=== PATIENT | female | born 1990 | race Caucasian/White ===

== ENCOUNTER 2017-08-24 18:23 | Inpatient (IN) | payer SELFPAY ==
--- NOTE | 2017-08-24 18:35 | EDPHY ---
H & P Source: Patient Exam Limitations: Clinical condition Time Seen by Provider: 08/24/17 18:34 HPI/ROS: HPI: This is a 26-year-old female who presents with Chief Complaint: M1, Panic Attack, Non-communicative, Hx Schizoaffective Location:psych Quality: Hearing voices Duration: unknown Signs and Symptoms:+ hearing voices Timing:acute on chronic Severity: Severe Context: Patient presents with police on M1 hold as she is hearing voices telling her to kill herself. She is described as disoriented and having difficulty responding to questions due to the intensity of the voices. Patient has a history of schizophrenia and is not being compliant with her medication. Upon arrival patient standing in the room staring for eyes fixed and wrist using to answer questions or look at. Police were notified by [facility] due to her noncompliance. Modifying Factors: Comment: ROS: Unable to obtain due to clinical condition MEDICAL/SURGICAL/SOCIAL HISTORY: Medical history: Schizoaffective disorder on Risperdal Surgical history: Denies Social history: Unemployed. CONSTITUTIONAL: Untidy, uncooperative, adult white female, awake and alert, no obvious distress HEENT: Atraumatic and normocephalic, PERRL, EOMI. Tympanic membranes clear. Oropharynx clear, no exudate and moist pink mucosa. Airway patent. No lymphadenopathy. No meningismus. Cardiovascular: Normal S1/S2, tachycardia, regular rhythm, without murmur rub or gallop. PULMONARY/CHEST: Symmetrical and nontender. Clear to auscultation bilaterally. Good air movement. No accessory muscle usage. ABDOMEN: Soft, nondistended, nontender, no rebound, no guarding, no peritoneal signs, no masses or organomegaly. No CVAT. EXTREMITIES: 2/2 pulses, strength 5/5, no deformities, no clubbing, no cyanosis or edema. NEUROLOGICAL: no focal neuro deficits. GCS 15. SKIN: Warm and dry, no erythema. no rash. Good capillary refill. PSYCH: Poor eye contact, refuses to look or talk to me, + auditory and visual command hallucinations, flat affect, suspicious ([place]) Constitutional: Initial Vital Signs Temperature (C) 36.7 C 08/24/17 18:48 Heart Rate 125 H 08/24/17 18:48 Respiratory Rate 20 08/24/17 18:48 Blood Pressure 139/95 H 08/24/17 18:48 O2 Sat (%) 98 08/24/17 18:48 O2 Delivery Mode Room Air Allergies/Adverse Reactions: No Known Allergies Allergy (Unverified 08/24/17 23:57) Home Medications: Medication Instructions Recorded Risnewtondal 08/24/17 Medical Decision Making ED Course/Re-evaluation: Agree M1 hold by police upon arrival. Labs and UDS ordered. 2129: Labs and UDS reviewed. Medically clear for mental health evaluation. 2300: Spoke with [facility] who requested Zyprexa given and re-evaluation in the morning due to patient being uncooperative with exam. 2345: [facility] nurse now reports that patient is accepted to [address] [place] [address]. Greenwood, psychiatry, is requesting another 5 mg of Zyprexa and 1 mg of Ativan be given to the patient. Patient's boyfriend reports that she started decompensated 1 week ago. This patient was seen under the supervision of my secondary supervising physician. I evaluated care for this patient independently. (Esmer Dasilva) Differential Diagnosis: Differential diagnosis includes but is not limited to psychosis, medication noncompliance, schizophrenia. (Esmer Dasilva) Other Provider: 0005 care assumed by me from DEDE hennessy pending placement. 0020 patient has been accepted to [address] Greenwood. I have completed the EMT A LA (Joseph Nur) - Data Points Laboratory Results: Laboratory Results 08/24/17 19:20 08/24/17 19:20 08/24/17 08/24/17 08/24/17 19:20 19:20 18:58 WBC 18.80 10^3/uL H 10^3/uL (3.80-9.50) RBC 5.23 10^6/uL 10^6/uL (4.18-5.33) Hgb 16.2 g/dL g/dL (12.6-16.3) Hct 45.3 % % (38.0-47.0) MCV 86.6 fL fL (81.5-99.8) MCH 31.0 pg pg (27.9-34.1) MCHC 35.8 g/dL g/dL (32.4-36.7) RDW 12.8 % % (11.5-15.2) Plt Count 207 10^3/uL 10^3/uL (150-400) MPV 10.1 fL fL (8.7-11.7) Neut % (Auto) 87.8 % H % (39.3-74.2) Lymph % (Auto) 7.0 % L % (15.0-45.0) [place]hin % (Auto) 4.5 % % (4.5-13.0) Eos % (Auto) 0.0 % L % (0.6-7.6) Baso % (Auto) 0.2 % L % (0.3-1.7) Nucleat RBC Rel Count 0.0 % % (0.0-0.2) Absolute Neuts (auto) 16.52 10^3/uL H 10^3/uL (1.70-6.50) Absolute Lymphs (auto) 1.31 10^3/uL 10^3/uL (1.00-3.00) Absolute Monos (auto) 0.84 10^3/uL H 10^3/uL (0.30-0.80) Absolute Eos (auto) 0.00 10^3/uL L 10^3/uL (0.03-0.40) Absolute Basos (auto) 0.04 10^3/uL 10^3/uL (0.02-0.10) Absolute Nucleated RBC 0.00 10^3/uL 10^3/uL (0-0.01) Immature Gran % 0.5 % % (0.0-1.1) Immature Gran # 0.09 10^3/uL 10^3/uL (0.00-0.10) Sodium 142 mEq/L mEq/L (135-145) Potassium 4.1 mEq/L mEq/L (3.5-5.2) Chloride 106 mEq/L mEq/L (97-110) Carbon Dioxide 16 mEq/l L mEq/l (22-31) Anion Gap 20 mEq/L H mEq/L (8-16) BUN 18 mg/dL mg/dL (7-23) Creatinine 0.6 mg/dL mg/dL (0.6-1.0) Estimated GFR > 60 Glucose 105 mg/dL H mg/dL (70-100) Calcium 10.1 mg/dL mg/dL (8.5-10.4) Urine Opiates Screen NEGATIVE (NEGATIVE) Urine Barbiturates NEGATIVE (NEGATIVE) Ur Phencyclidine Scrn NEGATIVE (NEGATIVE) Ur Amphetamine Screen NEGATIVE (NEGATIVE) U Benzodiazepines Scrn NEGATIVE (NEGATIVE) Urine Cocaine Screen NEGATIVE (NEGATIVE) U Marijuana (THC) Screen NEGATIVE (NEGATIVE) Ethyl Alcohol < 10 mg/dL mg/dL (0-10) Medications Given: Discontinued Medications Lorazepam (Ativan) 1 mg PO EDNOW ONE Stop: 08/24/17 23:47 Last Admin: 08/24/17 23:56 Dose: 1 mg Olanzapine (Zyprexa Zydis) 5 mg PO EDNOW ONE Stop: 08/24/17 22:48 Last Admin: 08/24/17 22:56 Dose: 5 mg Olanzapine (Zyprexa Zydis) 5 mg PO EDNOW ONE Stop: 08/24/17 23:47 Last Admin: 08/24/17 23:56 Dose: 5 mg Departure - Departure Disposition: [facility] IP Clinical Impression: Schizophrenia, history of multiple episodes, currently acute, Noncompliance with medication regimen Condition: Fair Referrals: NONE *PRIMARY CARE P,. [Primary Care Provider] - As per Instructions
[2017-08-24 19:32] LABS: PLATELET COUNT 207 10^3/uL (150-400)
[2017-08-24] MEDS ORDERED: OLANZapine DISINTEGR 5 MG TAB PO ONE ×2 (22:47→23:46)
[2017-08-24] MEDS ORDERED: LORazepam 1 MG TAB PO ONE (23:46)
[2017-08-25] MEDS ORDERED: MAGNESIUM HYDROXIDE 30 ML UDCUP PO PRN (02:15)
[2017-08-25] MEDS ORDERED: MAG HYDROX/AL HYDROX/SIMETH 30 ML UDCUP PO PRN (02:15)
[2017-08-25] MEDS ORDERED: ACETAMINOPHEN 325 MG TAB PO PRN (02:15)
[2017-08-25] MEDS ORDERED: NICOTINE POLACRILEX 2 MG GUM B PRN (02:15)
[2017-08-25] MEDS: OLANZapine 5 MG TAB PO PRN (07:54)
[2017-08-25] MEDS: LORazepam 0.5 MG TAB PO PRN (07:56)
[2017-08-25] MEDS: LORazepam 1 MG TAB PO SCH ×2 (08:59→20:56)
[2017-08-25] MEDS ORDERED: LORazepam 0.5 MG TAB PO SCH (09:00)
--- NOTE | 2017-08-25 17:28 | BAPA ---
[f rep st] ADMISSION PSYCHIATRIC ASSESSMENT DATE OF SERVICE: 08/25/2017 REASON FOR ADMISSION: Patient is a 26-year-old female with a reported history of schizophr enia. She was admitted from the emergency department after having been brought in by her fiance when she reported hearing voices telling her to kill herself. She reportedly was hospitalized twice last spring at [facility] due to acute psychosis and did very well with treatment, though, qian mares noncompliant, did not follow up after discharge. She reportedly was high functioning and was atten ding the [facility] until she decompensated about a week prior to this admission. Her boyfrie nd reported to [facility] that she had stopped sleeping and eating and was increasingly confused. He states that she had begun reporting hearing voices, including ones that told her she should kill herself. She was also stating that she "believes she was a bad person." The boyfriend was concerned and broug ht her to the hospital. In the emergency department, the patient was essentially nonverbal, was unab le to give any additional history. When I interviewed her today, she was standing in a fixed position rigidly upright in her room, stari ng straight ahead. She did not interact or make eye contact with me. After several minutes of my as miriam her questions and her not responding, she then abruptly laid in the bed in a similar position th ough supine, staring at the ceiling and was unresponsive. I returned to her room on 3 other occasion s attempting to engage her, and on 1 of the occasions she seemed to dart her eyes over to make sure I was still standing there at 1 point and then continued to look at the ceiling. She also was engaged in some rapid blinking of her eyes that ceased when I stepped out the door, but then when I came ziggy she began to do it again. She provided no additional information for me either, answering no quest ions. I did observe her, however, on the unit, where she came out of her room, would walk and then would go back to her room. This seemed to be goal-directed activity and there was no evidence of any bradyki nesia. The nurse entered her room earlier this morning, and she was sticking her finger down her thr oat to self induce vomiting. She was surprised to see the nurse visibly, though, did not answer any questions in regard to her behaviors. This behavior did not occur after meals or after meds, and the patient would not explain it. PAST PSYCHIATRIC HISTORY: Patient has the 2 previous admissions with the diagnosis of schizophrenia. She has had no followup since leaving the hospital approximately a year ago. She has no history of violence or suicide attempts. She was treated apparently with Risperdal while at [facility]. ALLERGIES: No known medical allergies. CURRENT MEDICATIONS: None. PAST MEDICAL HISTORY: Noncontributory per chart. SOCIAL HISTORY: Patient is reportedly a student at [employer] and lives with her boyfriend. She has no known acute stressors at this time. Patient's boyfriend stated that she does not use drug s or alcohol. FAMILY HISTORY: Unknown at this time. ADMISSION LABORATORY: CBC shows white count of 18.80, neutrophil percentage up at 87.8. Serum chemi stries show no significant abnormalities. Urine drug screen is negative for all substances, and alco hol is less than detectable. TSH was normal at 3.05. MENTAL STATUS EXAMINATION: Reveals a tall, thin, marginally groomed female. She is wearin [facility] garb. She stands in a fixed position and then lays in a similar fixed position, staring b lankly ahead. She seems to be flexing her extremities and her core to remain very rigid. She also d emonstrates some rapid eye blinking on both eyes throughout the interview. Her affect is constricted and stable. She does not speak. She does not answer questions in regard to orientation or any othe r topic for that matter. She does not endorse auditory hallucinations and does not appear to be resp onding to internal stimuli. IMPRESSION: Schizophrenia, chronic with acute exacerbation. Possible catatonia, recurrent illness, possible suicidality. Patient is a 26-year-old female with a history of schizophrenia that is somewhat atypical a t 1st glance. These symptoms could represent catatonia or could be volitional for some reason, eithe r based on psychosis or factitious. It is very difficult to ascertain at this point. We will need t o monitor her closely. There are several markers that she may not in fact be catatonic, but instead just avoiding conversation either based on her psychosis or some other factor. I will proceed with placing her on Risperdal and monitor. If she has more compelling symptoms of cat atonia, we can decide at that point how to proceed. She is also tachycardic as she is significantly dehydrated and refusing to eat or drink and now vomiting. We will have to monitor this closely and s he may need to go return to medical service for rehydration if necessary. Estimated length of stay is 5-7 days. /[id number]/MODL
--- NOTE | 2017-08-25 18:13 | BCON ---
[f rep st] BEHAVIORAL HEALTH CONSULTATION INTERNAL MEDICINE CONSULTATION DATE OF CONSULTATION: 08/25/2017 REASON FOR REFERRAL: Medical clearance for inpatient behavioral health stay. HISTORY OF PRESENT ILLNESS: This patient was admitted through the emergency department. She presented with police on an M1 hold, reporting that she was hearing voices telling her to kill herself. She was found to be disoriented and to have difficulty responding to questions due to hearing voices. She was treated with olanzapine, as well as lorazepam, evaluated by the mental health team and admitted for further psychiatric care. She currently is without any acute complaints. PAST MEDICAL HISTORY: Schizoaffective disorder. PAST SURGICAL HISTORY: She denies any history of surgeries. MEDICATIONS: She reports that she was on Risperdal injections, and she had had 2 of them. ALLERGIES: There are no known drug allergies. SOCIAL HISTORY: She lives with a boyfriend. She is a student at [employer], studying interdisciplinary studies including psychology, human development, and environmental studies. She is a nonsmoker and denies use of any substances of abuse. 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 FAMILY HISTORY: She reports her mother had a cancer. She is not sure what kind , but she reports that it was found early and excised and that her mother also has some joint pain symptoms. REVIEW OF SYSTEMS: She reports having too much on her mind to eat recently. She thinks she is a little bit thirsty. She denies weight gain or weight loss, however. She is not in pain. She denies fevers, chills, cough, or dyspnea, and she reports that her last menstrual period has been "too long ago." Otherwise, a 10-point review of systems is negative. PHYSICAL EXAMINATION: VITAL SIGNS: Blood pressure is 120/83. Heart rate was 135 this morning at 8:15. Respiratory rate was 14 last night. Temperature is 36.6 degrees centigrade. Her weight is 52.2 kg for a body mass index of 18. GENERAL: This is a slim woman who appears her chronologic age, cooperative, and in no acute distress. Dressed in hospital garb. HEENT: Extraocular movements are intact. Pupils are slightly unequal with the right pupil slightly larger than the left. They are, however, reactive to light. Mucous membranes are somewhat dry. Dentition is in good condition. NECK: Supple. HEART: There is regular rate and rhythm with no murmurs, rubs, or gallops. LUNGS: Clear to auscultation bilaterally. ABDOMEN: Benign. EXTREMITIES: There is no cyanosis, clubbing, or edema. NEUROLOGIC: She is alert and orientation was not checked. Cranial nerves 2-12 are grossly intact. There is no focal weakness. Sensation is intact to light touch, and gait is within normal limits. LABORATORY STUDIES: Drawn in the emergency department. CBC revealed a markedly elevated white count at 18.8; however, there was no left shift. There was a dominance of neutrophils and monocytes and a deficit of eosinophils. Otherwise, CBC was within normal limits. Serum chemistry revealed a low carbon dioxide of 16 and an anion gap of 20. Glucose was somewhat elevated at 105, though this was likely nonfasting; otherwise, renal function and electrolytes were normal, and TSH was normal at 3.05. Toxicology screen in the serum was negative for ethyl alcohol and in the urine was negative for any substances of abuse. ASSESSMENT/RECOMMENDATIONS: 1. Mental health issues, pending further evaluation and management per Psychiatry and the mental health team. 2. Tachycardia of unclear etiology. It could be that she is dehydrated. She was encouraged to increase her fluid intake. If tachycardia persists, consider an EKG. TSH was normal, so this is not hyperthyroidism. 3. Anorexia. Now that she is getting psychiatric care and is on medications, observe for normal oral intake. 4. Leukocytosis of unclear etiology. It may be a stress response. We will repeat a CBC in the morning. 5. Anion gap of unclear etiology. It could be respiratory acidosis with a low CO2. We will repeat a BMP in the morning. 6. Delayed menstrual period. We will order a serum test, which can be added onto the sample obtained yesterday. I see no medical contraindications to this patient's continued stay on the inpatient behavioral health unit or to any psychiatric medications or procedures. Thank you very much for including me in the care of this patient and please do not hesitate to contact me or the hospitalist service should there be need for further medical evaluation. /[id number]/MODL MTDD
[2017-08-25] MEDS ORDERED: RISPERIDONE 1 MG ODT TAB PO SCH (21:00)
[2017-08-26] MEDS: OLANZapine 5 MG TAB PO PRN (08:46)
[2017-08-26] MEDS: LORazepam 1 MG TAB PO SCH ×2 (08:46→20:51)
[2017-08-26] MEDS: RISPERIDONE 1 MG ODT TAB SL SCH ×4 (12:27→20:51)
--- NOTE | 2017-08-26 13:32 | SOAPPROG ---
SOAP Progress Note Assessment/Plan: Assessment: Plan: 08/26/17 13:32 Psychosis: Doing better. Difficult to sort out the genuine psychosis from any volitional behaviors. May have some bulimic behaviors as well. Will CCM, increase Risperdal to 1mg BID, monitor for cheeking. Subjective: Pt seen, discussed with staff. Sitting in dining room this morning, eating breakfast. Makes eye contact and speaks softly but appropriately. She states, "I am not doing well. I am hearing voices and I want it to stop." I discussed with her the use of the medications to help with this and she agrees to take them. She is noted to suddenly sprint up the hallway on several occasions this morning. Staff questioning whether this represent bulimic behavior. Objective: Vital Signs Temp Pulse Resp BP Pulse Ox 36.8 C 101 H 14 124/64 H 96 08/26/17 06:00 08/26/17 06:00 08/26/17 06:00 08/26/17 06:00 08/26/17 06:00 Laboratory Results 08/26/17 06:00 08/26/17 06:00 MSE: Poorly groomed, dressed in hospital garb. Activity is decreased. Affect is constricted, though she does smile at times. Makes meaningful eye contact. Speech is delayed, soft, though fluent. TP appears linear for brief periods. TC reveals AH's. - Time Spent With Patient Time Spent With Patient: 25" ICD10 Worksheet Patient Problems: Problems Problem Status Onset Noncompliance with medication regimen Acute Schizophrenia, history of multiple episodes, currently acute Acute
[2017-08-26] MEDS: POTASSIUM CL 20 MEQ TAB PO SCH (20:51)
[2017-08-27] MEDS: LORazepam 1 MG TAB PO SCH ×2 (09:09→20:30)
[2017-08-27] MEDS: RISPERIDONE 1 MG ODT TAB SL SCH ×2 (09:09→20:31)
--- NOTE | 2017-08-27 15:52 | SOAPPROG ---
SOAP Progress Note Assessment/Plan: Assessment: Per Dr. Middleton's note: 08/26/17 13:32 Psychosis: Doing better. Difficult to sort out the genuine psychosis from any volitional behaviors. May have some bulimic behaviors as well. Will CCM, increase Risperdal to 1mg BID, monitor for cheeking. Plan: 08/27/17 15:48 1. Patient took M-tab this AM, RN observed and noted tab was completely dissolved. 2. MD had lengthy conversation with FOC who arrived last night from [place]. [facility] states patient has never had eating disorder, and denies any h/o restricting or purging. He says she has been observed by boyfriend and staff during previous hospitalization in [place] putting fingers in her mouth, but not able to make herself throw up. He says this is b/c the "demons in her head tell her she has stomach cancer." Boyfriend confirms that this is reason for the apparent gagging behavior. 3. [facility] also says patient was on Risperdal Consta during second admission to [facility] last Spring. 4. Continue to monitor for cheeking. Will d/c bulimic precautions after meals, though continue to monitor for any signs of purging. Treating the underlying psychosis seems the best way to address this symptom. 5. ST Subjective: Met with patient and her FOC, reviewed chart and d/w staff. Patient was pacing outside her room. Staff had set tray with her lunch on desk so she could eat while visiting with her FOC. However, patient only ate a few bites and than said she wanted to go back to her room to lay down. When MD introduced himself to patient, she said "hi" and said she felt "fine" and had no questions for MD. Patient seemed distracted and possibly responding to internal stimuli, though she made eye contact during brief conversation. FOC said she got more agitated the more people were around her. [facility] reports patient was first hospitalized at [facility] in 2012 for psychotic delusions and CAH, she heard "the voices of demons telling her what to do," per FOC. He said that [facility] and [facility] had to go up to [place] where patient was in school and bring her to hospital b/c she "wasn't eating or drinking." [facility] says she was not restricting, but the "demons" were telling her not to eat. PARESH says she had deterioration of cardiac muscles d/t restricting intake. He says she "did well" until last Spring when she was admitted to [facility]. She was discharged on Risperdal tabs but didn't take the pills and was readmitted in 1 week. During her second admission, she was placed on Risperdal Consta. PARESH says she "did really well" earning " straight A's" at [employer] until "about 2 weeks ago" when boyfriend reporting patient responding to voices and acting "bizarre." PARESH says voices tell patient to clamshell engineer one place. He believes patient is doing it b/c voices "tell her to" and not d/t catatonia. Objective: Vital Signs Temp Pulse Resp BP Pulse Ox 36.8 C 101 H 14 124/64 H 96 08/26/17 06:00 08/26/17 06:00 08/26/17 06:00 08/26/17 06:00 08/26/17 06:00 Laboratory Results 08/26/17 06:00 08/26/17 06:00 MSE: Affect: Constricted Mood: "I feel fine" TP: Disorganized, illogical TC: CADE, PEMA, no SI/HI Insight/Judgment: Impaired - Time Spent With Patient Time Spent With Patient: 25" - Pending Discharge Pending Discharge Within 24 Hours: No Pending Discharge Within 48 Hours: No ICD10 Worksheet Patient Problems: Problems Problem Status Onset Noncompliance with medication regimen Acute Schizophrenia, history of multiple episodes, currently acute Acute
[2017-08-27] MEDS: POTASSIUM CL 20 MEQ TAB PO SCH (16:06)
[2017-08-28] MEDS: OLANZapine 5 MG TAB PO PRN (01:00)
[2017-08-28] MEDS: LORazepam 0.5 MG TAB PO PRN (01:42)
--- NOTE | 2017-08-28 08:01 | PDGENHP ---
History and Physical - Chief Complaint psychosis, tachycardia, not eating - History of Present Illness 26 yo female with h/o schizophrenia admitted to [facility] 08/25 with delusions and refusal to eat. She has continued to refuse to eat, has delusions that there is a cancer growing in her stomach. Reportedly, she attempts to self induce vomiting. Upon my evaluation this am, she wishes to "have some alone time". She appears very dry. She denies CP, SOB, palpitation , dizziness, abdominal or urinary symptoms. Her vitals this am revealed a HR of 150. Staff is unable to obtain labs or an EKG. She will be transferred to ED for further evaluation. History Information - Allergies/Home Medication List Allergies/Adverse Reactions: No Known Allergies Allergy (Unverified 08/24/17 23:57) Home Medications: Risperdal 08/24/17 [Last Taken Unknown] I have personally reviewed and updated: family history, medical history, social history, surgical history - Past Medical History Additional medical history: schizophrenia - Family History Positive for: non-pertinent - Social History Smoking Status: Unknown if ever smoked Review of Systems Review of Systems: ROS: 10pt was reviewed & negative except for what was stated in HPI & below Physical Exam Physical Exam: Temp Pulse Resp BP Pulse Ox 36.8 C 101 H 14 124/64 H 96 08/26/17 06:00 08/26/17 06:00 08/26/17 06:00 08/26/17 06:00 08/26/17 06:00 Constitutional: no apparent distress Eyes: PERRL Ears, Nose, Mouth, Throat: dry mucous membranes Cardiovascular: tachycardia Respiratory: no respiratory distress, clear to auscultation Gastrointestinal: other (refuses abdominal exam) Skin: warm Musculoskeletal: full muscle strength Psychiatric: anxious, agitated, poor insight Lab Data & Imaging Review 08/26/17 06:00 08/26/17 06:00 WBC 11.35 10^3/uL (3.80-9.50) H D 08/26/17 06:00 RBC 4.46 10^6/uL (4.18-5.33) 08/26/17 06:00 Hgb 14.1 g/dL (12.6-16.3) 08/26/17 06:00 Hct 39.3 % (38.0-47.0) 08/26/17 06:00 MCV 88.1 fL (81.5-99.8) 08/26/17 06:00 MCH 31.6 pg (27.9-34.1) 08/26/17 06:00 MCHC 35.9 g/dL (32.4-36.7) 08/26/17 06:00 RDW 12.7 % (11.5-15.2) 08/26/17 06:00 Plt Count 188 10^3/uL (150-400) 08/26/17 06:00 MPV 10.1 fL (8.7-11.7) 08/24/17 19:20 Neut % (Auto) 87.8 % (39.3-74.2) H 08/24/17 19:20 Lymph % (Auto) 7.0 % (15.0-45.0) L 08/24/17 19:20 [place] % (Auto) 4.5 % (4.5-13.0) 08/24/17 19:20 Eos % (Auto) 0.0 % (0.6-7.6) L 08/24/17 19:20 Baso % (Auto) 0.2 % (0.3-1.7) L 08/24/17 19:20 Nucleat RBC Rel Count 0.0 % (0.0-0.2) 08/24/17 19:20 Absolute Neuts (auto) 16.52 10^3/uL (1.70-6.50) H 08/24/17 19:20 Absolute Lymphs (auto) 1.31 10^3/uL (1.00-3.00) 08/24/17 19:20 Absolute Monos (auto) 0.84 10^3/uL (0.30-0.80) H 08/24/17 19:20 Absolute Eos (auto) 0.00 10^3/uL (0.03-0.40) L 08/24/17 19:20 Absolute Basos (auto) 0.04 10^3/uL (0.02-0.10) 08/24/17 19:20 Absolute Nucleated RBC 0.00 10^3/uL (0-0.01) 08/24/17 19:20 Immature Gran % 0.5 % (0.0-1.1) 02/07/18 19:20 Immature Gran # 0.09 10^3/uL (0.00-0.10) 08/24/17 19:20 Sodium 143 mEq/L (135-145) 08/26/17 06:00 Potassium 3.3 mEq/L (3.5-5.2) L 08/26/17 06:00 Chloride 103 mEq/L (97-110) 08/26/17 06:00 Carbon Dioxide 21 mEq/l (22-31) L 08/26/17 06:00 Anion Gap 19 mEq/L (8-16) H 08/26/17 06:00 BUN 29 mg/dL (7-23) H 08/26/17 06:00 Creatinine 0.8 mg/dL (0.6-1.0) 08/26/17 06:00 Estimated GFR > 60 08/26/17 06:00 Glucose 103 mg/dL (70-100) H 08/26/17 06:00 Calcium 9.5 mg/dL (8.5-10.4) 08/26/17 06:00 Beta-Hydroxybutyrate 1.60 mmol/L (0.02-0.27) H 08/26/17 17:25 TSH 3.050 uIU/mL (0.465-4.680) 08/25/17 09:36 Beta HCG, Quant < 2.39 mIU/mL (0.00-4.83) 08/25/17 09:36 Urine Opiates Screen NEGATIVE (NEGATIVE) 08/24/17 18:58 Urine Barbiturates NEGATIVE (NEGATIVE) 08/24/17 18:58 Ur Phencyclidine Scrn NEGATIVE (NEGATIVE) 08/24/17 18:58 Ur Amphetamine Screen NEGATIVE (NEGATIVE) 08/24/17 18:58 U Benzodiazepines Scrn NEGATIVE (NEGATIVE) 08/24/17 18:58 Urine Cocaine Screen NEGATIVE (NEGATIVE) 08/24/17 18:58 U Marijuana (THC) Screen NEGATIVE (NEGATIVE) 08/24/17 18:58 Ethyl Alcohol < 10 mg/dL (0-10) 08/24/17 19:20 Assessment & Plan Assessment: Noncompliance with medication regimen (Acute) Schizophrenia, history of multiple episodes, currently acute (Acute) Tachycardia (Acute) Refusal to eat Volume depletion She has been treated with Risperdal, prn Zyprexa and prn Ativan. She continues to be delusional and detached. She is at risk for electrolyte disturbance and clinically appears volume depleted. Staff unable to obtain labs or EKG. She will be transferred to ED by EMS for further evaluation.
[2017-08-28] MEDS: POTASSIUM CL 20 MEQ TAB PO SCH (12:19)
[2017-08-28] MEDS: RISPERIDONE 1 MG ODT TAB SL SCH ×2 (12:19→19:26)
[2017-08-28] MEDS: LORazepam 1 MG TAB PO SCH ×2 (12:20→19:26)
--- NOTE | 2017-08-28 15:17 | SOAPPROG ---
SOAP Progress Note Assessment/Plan: Assessment: Per Dr. Middleton's note: 08/26/17 13:32 Psychosis: Doing better. Difficult to sort out the genuine psychosis from any volitional behaviors. May have some bulimic behaviors as well. Will [facility], increase Risperdal to 1mg BID, monitor for cheeking. Plan: 08/27/17 15:48 1. Patient took M-tab this AM, RN observed and noted tab was completely dissolved. 2. MD had lengthy conversation with [facility] who arrived last night from [place]. [facility] states patient has never had eating disorder, and denies any h/o restricting or purging. He says she has been observed by boyfriend and staff during previous hospitalization in [place] putting fingers in her mouth, but not able to make herself throw up. He says this is b/c the "demons in her head tell her she has stomach cancer." Boyfriend confirms that this is reason for the apparent gagging behavior. 3. [facility] also says patient was on Risperdal Consta during second admission to [facility] last Spring. 4. Continue to monitor for cheeking. Will d/c bulimic precautions after meals, though continue to monitor for any signs of purging. Treating the underlying psychosis seems the best way to address this symptom. 5. [facility] 08/28/17 15:13 1. Patient had tachycardia, flushed cheeks, refused vitals (no temp), cracked lips. Hospitalist, Dr. Guerrero, sent her to ED for labs, fluids and EKG. Lab results were mostly WNL, potassium slightly low at 3.1 She received 10mEq of K+ in ED and 1L NS IV. EKG showed NSR. 2. Patient has been taking m-tab without problem. 3. Patient only slept 2.5 hrs last night and refused to sleep in her room b/c she was afraid. Today, MD noticed patient was standing in her room apparently responding to IS. After several questions, patient focused on MD and was able to answer questions "yes" or "no." 4. [facility] Subjective: Met with patient, reviewed chart and d/w staff. This AM, patient had tachycardia , flushed cheeks, refused vitals (no temp), cracked lips. Hospitalist, Dr. Guerrero, sent her to ED for labs, fluids and EKG. Lab results were mostly WNL, potassium slightly low at 3.1 She received 10mEq of K+ in ED and 1L NS IV. EKG showed NSR. Patient has been taking m-tab without problem. Patient only slept 2.5 hrs last night and refused to sleep in her room b/c she was afraid. Today, MD noticed patient was standing in her room apparently responding to IS. After several questions, patient focused on MD and was able to answer questions "yes" or "no." She is still not eating meals and has very poor fluid intake. Objective: Vital Signs Temp Pulse Resp BP Pulse Ox 36.8 C 101 H 14 124/64 H 96 08/26/17 06:00 08/26/17 06:00 08/26/17 06:00 08/26/17 06:00 08/26/17 06:00 Laboratory Results 08/26/17 06:00 08/26/17 06:00 08/27/17 08/28/17 08/29/17 05:59 05:59 05:59 Intake Total 300 Balance 300 MSE: Affect: Flat Mood: No response TP: Disorganized, illogical TC: Active RIS, internal preoccupation Insight/Judgment: Impaired - Time Spent With Patient Time Spent With Patient: 20" - Pending Discharge Pending Discharge Within 24 Hours: No Pending Discharge Within 48 Hours: No ICD10 Worksheet Patient Problems: Problems Problem Status Onset Noncompliance with medication regimen Acute Schizophrenia, history of multiple episodes, currently acute Acute Delusional disorder Acute Inadequate oral intake Acute Schizophrenia Acute
[2017-08-29] MEDS: LORazepam 1 MG TAB PO SCH ×2 (08:22→20:58)
[2017-08-29] MEDS: RISPERIDONE 1 MG ODT TAB SL SCH ×2 (08:22→20:58)
[2017-08-29] MEDS: POTASSIUM CL 20 MEQ TAB PO SCH ×2 (15:57→21:22)
--- NOTE | 2017-08-29 17:27 | SOAPPROG ---
SOAP Progress Note Assessment/Plan: Assessment: Plan: 08/26/17 13:32 Psychosis: Doing better. Difficult to sort out the genuine psychosis from any volitional behaviors. May have some bulimic behaviors as well. Will [facility], increase Risperdal to 1mg BID, monitor for cheeking. 08/29/17 17:27 Psychosis: REmains quiet ill but improving. CCM. Subjective: Pt seen, discussed with staff, chart reviewed. She continues to exhibit unpredictable hyperkinetic behaviors, impulsivity. She also will stop and posture in a seeming cataleptic pose, but is able to terminate this at will. She is eating a bit better with no observed purging except continued running in the halls. I observed her attempting to do push-ups after lunch today. She refuses to speak to me, instead laying face down on the floor in the hallway. As soon as I left, she jumped up and resumed pacing. she is compliant with meds. Objective: Vital Signs Temp Pulse Resp BP Pulse Ox 36.7 C 83 14 102/52 L 94 08/29/17 17:10 08/29/17 04:46 08/29/17 04:46 08/29/17 04:46 08/29/17 04:46 Laboratory Results 08/26/17 06:00 08/26/17 06:00 08/28/17 08/29/17 08/30/17 05:59 05:59 05:59 Intake Total 1300 100 250 Balance 1300 100 250 MSE: Moderately agitated, uncooperative, does not engage. Affect is constricted, stable. Mood is not described. TP is disorganized, blocked. Appears to be internally preoccupied, talking to self at times. Reportedly told father that she is hearing "demons." - Time Spent With Patient Time Spent With Patient: 15" ICD10 Worksheet Patient Problems: Problems Problem Status Onset Noncompliance with medication regimen Acute Schizophrenia, history of multiple episodes, currently acute Acute
[2017-08-30] MEDS: OLANZapine 5 MG TAB PO PRN (00:51)
[2017-08-30] MEDS: LORazepam 1 MG TAB PO SCH ×2 (08:39→22:32)
[2017-08-30] MEDS: POTASSIUM CL 20 MEQ TAB PO SCH (08:39)
[2017-08-30] MEDS: RISPERIDONE 1 MG ODT TAB SL SCH ×2 (08:39→22:31)
[2017-08-30] MEDS ORDERED: RISPERIDONE 1 MG ODT TAB SL PRN (11:58)
[2017-08-30] MEDS: PALIPERIDONE PALMITATE 234 MG/1.5 ML SYR IM ONE ×2 (13:48→13:54)
--- NOTE | 2017-08-30 16:18 | SOAPPROG ---
SOAP Progress Note Assessment/Plan: Assessment: Plan: 08/26/17 13:32 Psychosis: Doing better. Difficult to sort out the genuine psychosis from any volitional behaviors. May have some bulimic behaviors as well. Will [facility], increase Risperdal to 1mg BID, monitor for cheeking. 08/29/17 17:27 Psychosis: REmains quiet ill but improving. CCM. 08/30/17 16:19 Psychosis: Some improvement. Will continue PO Risperdal and encourage the Sustenna shot. If she continues to refuse meds, will seek COM. Subjective: Pt seen, discussed with staff. Reports feeling "a lot better". Able to converse with me appropriately. States she is "ready to go home." I ask her if she will participate in a family meeting with her parents and BF and she states she broke up with her BF and doesn't want her parents involved in her care. She has also been cheeking her meds and when I ask her about this, she states, "Can I get an Invega Sustenna shot instead?" I agreed with this and wrote for a 234mg shot. She was offered this later in the shift and refused. Objective: Vital Signs Temp Pulse Resp BP Pulse Ox 36.8 C 110 H 18 136/91 H 97 08/30/17 06:34 08/30/17 12:33 08/30/17 12:33 08/30/17 12:33 08/30/17 12:33 Laboratory Results 08/26/17 06:00 08/26/17 06:00 08/29/17 08/30/17 08/31/17 05:59 05:59 05:59 Intake Total 100 546 160 Output Total 0 Balance 100 546 160 MSE: Calm, generally cooperative. Less mutism or retardation. Affect is blunted, stable. Mood is "a lot better." TP linear for brief periods, derails and blocks frequently. Continues to endorse AH's. - Time Spent With Patient Time Spent With Patient: 25" ICD10 Worksheet Patient Problems: Problems Problem Status Onset Noncompliance with medication regimen Acute Schizophrenia, history of multiple episodes, currently acute Acute
[2017-08-31] MEDS: POTASSIUM CL 20 MEQ TAB PO SCH (08:31)
[2017-08-31] MEDS: LORazepam 1 MG TAB PO SCH ×2 (08:31→20:04)
[2017-08-31] MEDS: RISPERIDONE 1 MG ODT TAB SL SCH ×2 (08:31→20:04)
--- NOTE | 2017-08-31 14:00 | SOAPPROG ---
SOAP Progress Note Assessment/Plan: Assessment: Plan: 08/26/17 13:32 Psychosis: Doing better. Difficult to sort out the genuine psychosis from any volitional behaviors. May have some bulimic behaviors as well. Will [facility], increase Risperdal to 1mg BID, monitor for cheeking. 08/29/17 17:27 Psychosis: REmains quiet ill but improving. CCM. 08/30/17 16:19 Psychosis: Some improvement. Will continue PO Risperdal and encourage the Sustenna shot. If she continues to refuse meds, will seek COM. 08/31/17 13:59 Psychosis: Slow improvement. Remains quite ill. Will continue Risperdal and try again with Sustenna. Subjective: Pt seen, discussed with staff. She refused the Sustenna yesterday. I talked to her about it again today and she says again to me that she would prefer to take it than to take pills. She has been compliant with the Risperdal with no recent observed cheeking. She is eating better and is less agitated though remains impulsive. Objective: Vital Signs Temp Pulse Resp BP Pulse Ox 36.8 C 111 H 16 133/85 H 96 08/31/17 00:30 08/31/17 00:30 08/31/17 00:30 08/31/17 00:30 08/31/17 00:30 Laboratory Results 08/26/17 06:00 08/26/17 06:00 08/30/17 08/31/17 09/01/17 05:59 05:59 05:59 Intake Total 546 960 Output Total 0 Balance 546 960 - Time Spent With Patient Time Spent With Patient: 25" ICD10 Worksheet Patient Problems: Problems Problem Status Onset Noncompliance with medication regimen Acute Schizophrenia, history of multiple episodes, currently acute Acute
[2017-09-01] MEDS: POTASSIUM CL 20 MEQ TAB PO SCH ×2 (08:04→08:28)
[2017-09-01] MEDS: RISPERIDONE 1 MG ODT TAB SL SCH ×2 (08:29→20:05)
[2017-09-01] MEDS: LORazepam 1 MG TAB PO SCH ×2 (08:29→20:05)
[2017-09-01] MEDS ORDERED: PALIPERIDONE PALMITATE 234 MG/1.5 ML SYR IM ONE (12:00)
--- NOTE | 2017-09-01 17:55 | SOAPPROG ---
SOAP Progress Note Assessment/Plan: Assessment: Per Dr. Middleton's note: 08/29/17 17:27 Psychosis: REmains quiet ill but improving. [facility]. 08/30/17 16:19 Psychosis: Some improvement. Will continue PO Risperdal and encourage the Sustenna shot. If she continues to refuse meds, will seek COM. 08/31/17 13:59 Psychosis: Slow improvement. Remains quite ill. Will continue Risperdal and try again with Sustenna. Plan: 09/01/17 17:50 1. Patient more coherent, logical today. Agreed to take Sustenna injection and allowed RN to administer. 2. Seems much less paranoid, but still sleeping on couch in dayroom instead of in her room. 3. Patient also ate 25% of breakfast. 4. [facility] Subjective: Met with patient, reviewed chart and d/w staff. Patient was lying on couch wrapped in blanket when MD and RN approached her to discuss taking Sustenna injection. She had previously agreed to take shot with Dr. Middleton, but refused when RN attempted to administer injection. This time, patient said she would take the shot, but didn't want to stay in hospital to get the second injection. MD encouraged patient to focus on one decision at a time, and that taking this injection was best first step to getting back to her usual way of functioning. Patient eventually agreed and took injection. Objective: Vital Signs Temp Pulse Resp BP Pulse Ox 36.8 C 112 H 16 120/64 95 08/31/17 00:30 09/01/17 08:00 09/01/17 08:00 09/01/17 08:00 09/01/17 08:00 Laboratory Results 08/26/17 06:00 08/26/17 06:00 08/31/17 09/01/17 09/02/17 05:59 05:59 05:59 Intake Total 960 300 Output Total 150 Balance 960 150 MSE: Affect: Flat Mood: "OK" TP: More coherent and logical TC: No SI/HI, less paranoia and less intrusive AH Insight/Judgment: Improved - Time Spent With Patient Time Spent With Patient: 15" - Pending Discharge Pending Discharge Within 24 Hours: No Pending Discharge Within 48 Hours: No ICD10 Worksheet Patient Problems: Problems Problem Status Onset Noncompliance with medication regimen Acute Schizophrenia, history of multiple episodes, currently acute Acute
[2017-09-02] MEDS: RISPERIDONE 1 MG ODT TAB SL SCH ×2 (09:00→20:38)
[2017-09-02] MEDS: POTASSIUM CL 20 MEQ TAB PO SCH (09:00)
[2017-09-02] MEDS: LORazepam 1 MG TAB PO SCH ×2 (09:00→20:38)
--- NOTE | 2017-09-02 14:21 | SOAPPROG ---
SOAP Progress Note Assessment/Plan: Assessment: Plan: 08/26/17 13:32 Psychosis: Doing better. Difficult to sort out the genuine psychosis from any volitional behaviors. May have some bulimic behaviors as well. Will [facility], increase Risperdal to 1mg BID, monitor for cheeking. 08/29/17 17:27 Psychosis: REmains quiet ill but improving. [facility]CM. 08/30/17 16:19 Psychosis: Some improvement. Will continue PO Risperdal and encourage the Sustenna shot. If she continues to refuse meds, will seek COM. 08/31/17 13:59 Psychosis: Slow improvement. Remains quite ill. Will continue Risperdal and try again with Sustenna. 09/02/17 14:20 Psychosis. Much improved overall. Will consider giving second Invega shot earlier next week if she continues to improve. Subjective: Pt seen, discussed with staff. Met with patient and her mother. Discussed the treatment plan and her clinical progress. She is much more organized and appropriate, though continues to voice some paranoid and bizarre thoughts such as "having something terrible inside me" and being afraid to be in her room. Not recent purging observed. Behavioral plan remains in place. Objective: Vital Signs Temp Pulse Resp BP Pulse Ox 36.5 C 128 H 16 119/70 96 09/02/17 00:30 09/02/17 08:00 09/02/17 08:00 09/02/17 08:00 09/02/17 08:00 Laboratory Results 08/26/17 06:00 08/26/17 06:00 09/01/17 09/02/17 09/03/17 05:59 05:59 05:59 Intake Total 300 0 Output Total 150 Balance 150 0 MSE: Calmer, though still guarded. Affect is constricted, though better modulated overall; smiles appropriately. Mood is "a lot better." TP linear at times, derails at others. TC reveals paranoid and bizarre thoughts. A&Ox4. - Time Spent With Patient Time Spent With Patient: 25" ICD10 Worksheet Patient Problems: Problems Problem Status Onset Noncompliance with medication regimen Acute Schizophrenia, history of multiple episodes, currently acute Acute
[2017-09-03] MEDS: POTASSIUM CL 20 MEQ TAB PO SCH (09:25)
[2017-09-03] MEDS: RISPERIDONE 1 MG ODT TAB SL SCH ×2 (09:25→20:57)
[2017-09-03] MEDS: LORazepam 1 MG TAB PO SCH ×2 (09:26→20:57)
--- NOTE | 2017-09-03 13:43 | SOAPPROG ---
SOAP Progress Note Assessment/Plan: Assessment: Per Dr. Middleton's note: 08/29/17 17:27 Psychosis: REmains quiet ill but improving. [facility]. 08/30/17 16:19 Psychosis: Some improvement. Will continue PO Risperdal and encourage the Sustenna shot. If she continues to refuse meds, will seek COM. 08/31/17 13:59 Psychosis: Slow improvement. Remains quite ill. Will continue Risperdal and try again with Sustenna. Plan: 09/01/17 17:50 1. Patient more coherent, logical today. Agreed to take Sustenna injection and allowed RN to administer. 2. Seems much less paranoid, but still sleeping on couch in dayroom instead of in her room. 3. Patient also ate 25% of breakfast. 4. ST 09/03/17 13:40 1. Patient is much more talkative than MD has ever seen her. 2. Participates in group and milieu activities more. 3. Eating 25-50% of meals. 4. Still sleeps on couch, avoids her room. 5. ST Subjective: Met with patient, reviewed chart and d/w staff. Patient is more talkative in group. Patient told MD she wants to have "more hope." She reports no SE's or complaints since receiving Sustenna injection. Objective: Vital Signs Temp Pulse Resp BP Pulse Ox 36.9 C 100 12 141/80 H 95 09/03/17 00:30 09/03/17 00:30 09/03/17 00:30 09/03/17 00:30 09/03/17 00:30 Laboratory Results 08/26/17 06:00 08/26/17 06:00 09/02/17 09/03/17 09/04/17 05:59 05:59 05:59 Intake Total 0 340 Balance 0 340 MSE: Affect: Euthymic, smiling at times Mood: "OK" TP: Linear, goal-directed TC: Denies any SI/HI, no AH/VH Insight/Judgment: Improved - Time Spent With Patient Time Spent With Patient: 15" - Pending Discharge Pending Discharge Within 24 Hours: No Pending Discharge Within 48 Hours: No ICD10 Worksheet Patient Problems: Problems Problem Status Onset Noncompliance with medication regimen Acute Schizophrenia, history of multiple episodes, currently acute Acute
[2017-09-04] MEDS: LORazepam 1 MG TAB PO SCH ×2 (08:26→20:45)
[2017-09-04] MEDS: RISPERIDONE 1 MG ODT TAB SL SCH ×2 (08:26→20:45)
[2017-09-04] MEDS: POTASSIUM CL 20 MEQ TAB PO SCH (08:53)
--- NOTE | 2017-09-04 15:53 | SOAPPROG ---
SOAP Progress Note Assessment/Plan: Assessment: Per Dr. Middleton's note: 08/29/17 17:27 Psychosis: REmains quiet ill but improving. [facility]. 08/30/17 16:19 Psychosis: Some improvement. Will continue PO Risperdal and encourage the Sustenna shot. If she continues to refuse meds, will seek COM. 08/31/17 13:59 Psychosis: Slow improvement. Remains quite ill. Will continue Risperdal and try again with Sustenna. Plan: 09/01/17 17:50 1. Patient more coherent, logical today. Agreed to take Sustenna injection and allowed RN to administer. 2. Seems much less paranoid, but still sleeping on couch in dayroom instead of in her room. 3. Patient also ate 25% of breakfast. 4. [facility] 09/03/17 13:40 1. Patient is much more talkative than MD has ever seen her. 2. Participates in group and milieu activities more. 3. Eating 25-50% of meals. 4. Still sleeps on couch, avoids her room. 5. [facility] 09/04/17 15:48 1. Refused K+ supplement this AM 2. Ate < 25% of breakfast, but ate better at lunch 3. Staff report no sleep last night 4. Anticipate 2nd Invega Sustenna injection on 09/06/17 Subjective: Met with patient, reviewed chart and d/w staff. Staff report patient didn't sleep at all last night. She still refuses to sleep in her room and stays on couch. This AM she ate a banana and spit it back out, per staff. She only drank a little juice and some water. However, when sat down and talked to patient and her MOC with Jane CASPER, present, she was eating lunch. She ate some Tofu and salad. She was more responsive and had more spontaneous speech than in AM when she was immobile for up to 30 min and not responding to questions. She presented much better by afternoon and was answering questions and talking to MOC during her visit. Objective: Vital Signs Temp Pulse Resp BP Pulse Ox 36.9 C 115 H 16 136/93 H 93 09/04/17 06:00 09/04/17 06:00 09/04/17 06:00 09/04/17 06:00 09/04/17 06:00 Laboratory Results 08/26/17 06:00 08/26/17 06:00 09/03/17 09/04/17 09/05/17 05:59 05:59 05:59 Intake Total 340 720 Balance 340 720 MSE: Affect: Constricted Mood: "OK" TP: Goal-directed at times, paucity of speech other times TC: No SI/HI, appears to respond to IS when standing still in hallway Insight/Judgment: Improving - Time Spent With Patient Time Spent With Patient: 20" - Pending Discharge Pending Discharge Within 24 Hours: No Pending Discharge Within 48 Hours: No ICD10 Worksheet Patient Problems: Problems Problem Status Onset Noncompliance with medication regimen Acute Schizophrenia, history of multiple episodes, currently acute Acute
[2017-09-05] MEDS: RISPERIDONE 1 MG ODT TAB SL SCH ×2 (09:06→20:37)
[2017-09-05] MEDS: LORazepam 1 MG TAB PO SCH ×2 (09:06→20:36)
[2017-09-05] MEDS: POTASSIUM CL 20 MEQ TAB PO SCH (09:06)
--- NOTE | 2017-09-05 21:01 | SOAPPROG ---
SOAP Progress Note Assessment/Plan: Assessment: Plan: 08/26/17 13:32 Psychosis: Doing better. Difficult to sort out the genuine psychosis from any volitional behaviors. May have some bulimic behaviors as well. Will [facility], increase Risperdal to 1mg BID, monitor for cheeking. 08/29/17 17:27 Psychosis: REmains quiet ill but improving. [facility]. 08/30/17 16:19 Psychosis: Some improvement. Will continue PO Risperdal and encourage the Sustenna shot. If she continues to refuse meds, will seek COM. 08/31/17 13:59 Psychosis: Slow improvement. Remains quite ill. Will continue Risperdal and try again with Sustenna. 09/02/17 14:20 Psychosis. Much improved overall. Will consider giving second Invega shot earlier next week if she continues to improve. 09/05/17 21:00 Psychosis: Doing better overall. Remains somewhat tenuous. Will [facility], meet with patient and mother tomorrow to decide on d/c plan. Subjective: Pt seen, discussed with staff and Dr. Greenwood. Chart reviewed. She slept only 3.5 hours last night. Unit was disruptive with fire drill and loud patients at bed time. She is sleepy today, staying in bed. She states she is ready to go home. Some increased disorganization noted on 09/04/17 morning. Objective: Vital Signs Temp Pulse Resp BP Pulse Ox 36.5 C 131 H 20 121/70 H 90 L 09/05/17 06:00 09/05/17 06:00 09/05/17 06:00 09/05/17 06:00 09/05/17 06:00 Laboratory Results 08/26/17 06:00 08/26/17 06:00 09/04/17 09/05/17 09/06/17 05:59 05:59 05:59 Intake Total 720 320 300 Balance 720 320 300 MSE: Calm, interactive. Appears sleepy, but able to conduct interview appropriately. Affect is blunted, but she smiles approp. Mood is "OK." TP generally lienar. TC reveal no AH's. - Time Spent With Patient Time Spent With Patient: 25" ICD10 Worksheet Patient Problems: Problems Problem Status Onset Noncompliance with medication regimen Acute Schizophrenia, history of multiple episodes, currently acute Acute
[2017-09-06 06:53] VITALS: BP 101/70; PULSE 120; RESP 14; TEMP 98.3; O2SAT 97
[2017-09-06] MEDS: RISPERIDONE 1 MG ODT TAB SL SCH (08:20)
[2017-09-06] MEDS: LORazepam 1 MG TAB PO SCH (08:20)
[2017-09-06] MEDS: POTASSIUM CL 20 MEQ TAB PO SCH (08:21)
[2017-09-06] MEDS: PALIPERIDONE PALMITATE 156 MG/ML SYR IM ONE ×2 (08:21→10:34)
== END 2017-09-06 13:03 | disposition home or self-care (01) | DRG 885 ==
LOC: BBEH 08-25 01:20
PROVIDERS: ADMIT Psychiatry & Neurology Psychiatry; ATTEND Psychiatry & Neurology Psychiatry
DX: F20.2 Catatonic schizophrenia (principal); R00.0 Tachycardia, unspecified; R63.0 Anorexia; T43.506A Underdosing of unspecified antipsychotics and neuroleptics, initial encounter
CPT/HCPCS: 80305; G0480; J2426

== ENCOUNTER 2017-08-28 08:55 | Emergency (ER) | payer OTHER ==
[2017-08-28] MEDS ORDERED: NS 1,000 ML IV ONE ×2 (08:58)
[2017-08-28 09:13] VITALS: O2SAT 97
[2017-08-28 09:17] LABS: PLATELET COUNT 180 10^3/uL (150-400)
--- NOTE | 2017-08-28 09:31 | EDPHY ---
H & P Source: Patient, RN notes reviewed Exam Limitations: No limitations - Medical/Surgical History Hx Asthma: No Hx Chronic Respiratory Disease: No Hx Diabetes: No Hx Cardiac Disease: No Hx Renal Disease: No Hx Cirrhosis: No Hx Alcoholism: No Hx HIV/AIDS: No Hx Splenectomy or Spleen Trauma: No Other PMH: Schizophrenia, low thyroid, - Social History Smoking Status: Unknown if ever smoked Time Seen by Provider: 08/28/17 08:57 HPI/ROS: HPI: This is a 26-year-old female who presents Chief Complaint: Dehydration, tachycardia Location: Body Quality: Dehydration Duration: 1-3 days Signs and Symptoms: no fever, no nausea, no vomiting, no hematemesis, no blood in stool, no abdominal bloating, no diarrhea, no back pain, no urinary symptoms , no vaginal bleeding/discharge, no indigestion, no chest pain, no shortness of breath Timing: Constant Severity: Moderate Context: Patient was transferred from [address] to the emergency room with concerns of dehydration. Vital signs at the facility noted tachycardia. Patient has a history of schizophrenia currently in a catatonic state and delusional. Patient believes that demons are talking to her giving her commands not to eat or drink. She has visual and auditory hallucinations. She is paranoid. LMP unknown. No fever/diarrhea/abdominal pain/vomiting. Patient is currently not cooperative with exam but I saw the patient several days ago when she originally came to the ER and was placed on M1 hold so I am familiar with her case. Modifying Factors: None Comment: ROS: Difficult due to current clinical condition psychosis and delusions MEDICAL/SURGICAL/SOCIAL HISTORY: Medical history: Schizophrenia Surgical history: Denies Social history: Employed. Has a boyfriend. CONSTITUTIONAL: Well-developed well-nourished nontoxic-appearing adult white female, sitting up straight in bed, staring straight ahead, flat affect, rigid body posture, awake and alert, no obvious distress HEENT: Atraumatic and normocephalic, PERRL, EOMI. Tympanic membranes clear. Oropharynx clear, no exudate and moist pink mucosa. Airway patent. No lymphadenopathy. No meningismus. Cardiovascular: Normal S1/S2, tachycardia, regular rhythm, without murmur rub or gallop. PULMONARY/CHEST: Symmetrical and nontender. Clear to auscultation bilaterally. Good air movement. No accessory muscle usage. ABDOMEN: Soft, nondistended, nontender, no rebound, no guarding, no peritoneal signs, no masses or organomegaly. No CVAT. EXTREMITIES: 2/2 pulses, strength 5/5, no deformities, no clubbing, no cyanosis or edema. NEUROLOGICAL: no focal neuro deficits. GCS 15. SKIN: Warm and dry, no erythema. no rash. Good capillary refill. (Esmer Dasilva) Constitutional: Initial Vital Signs Temperature (C) 37 C 08/28/17 09:11 Heart Rate 110 H 08/28/17 09:11 Respiratory Rate 16 08/28/17 09:11 Blood Pressure 141/101 H 08/28/17 09:11 O2 Sat (%) 97 08/28/17 09:11 O2 Delivery Mode Room Air Allergies/Adverse Reactions: No Known Allergies Allergy (Unverified 08/24/17 23:57) Home Medications: Medication Instructions Recorded Risperdal 08/24/17 Medical Decision Making ED Course/Re-evaluation: Labs, urinalysis, IV fluids ordered Patient has mild tachycardia upon arrival; given 2 L normal saline Labs reviewed: No leukocytosis/acute kidney injury. Potassium 3.1; magnesium level ordered; patient not taking oral intake; IV KCl rider 10 mEq ordered Patient unable to give urine sample. Doubt urinary tract infection. Vital signs greatly improved upon discharge. Patient is appropriate for discharge back to [address] [place] [address]. This patient was seen under the supervision of my secondary supervising physician. I evaluated care for this patient independently. Discussed this patient with Dr. Bennett who did not see the patient. (Esmer Dasilva) I did not see this patient while she was in the emergency department. However her care was discussed with the PA while the patient was in the emergency department. I agree with treatment plan and management (Froy Bennett) Differential Diagnosis: Differential diagnosis includes but is not limited to malnutrition, electrolyte imbalance, dehydration, urinary tract infection. (Esmer Dasilva) - Data Points Laboratory Results: Laboratory Results 08/28/17 09:08 08/28/17 09:08 08/28/17 08/28/17 08/28/17 09:08 09:08 09:08 WBC RBC Hgb Hct MCV MCH MCHC RDW Plt Count MPV Neut % (Auto) Lymph % (Auto) [place] % (Auto) Eos % (Auto) Baso % (Auto) Nucleat RBC Rel Count Absolute Neuts (auto) Absolute Lymphs (auto) Absolute Monos (auto) Absolute Eos (auto) Absolute Basos (auto) Absolute Nucleated RBC Immature Gran % Immature Gran # Sodium 144 mEq/L mEq/L (135-145) Potassium 3.1 mEq/L L mEq/L (3.5-5.2) Chloride 105 mEq/L mEq/L (97-110) Carbon Dioxide 25 mEq/l mEq/l (22-31) Anion Gap 14 mEq/L mEq/L (8-16) BUN 16 mg/dL mg/dL (7-23) Creatinine 0.7 mg/dL mg/dL (0.6-1.0) Estimated GFR > 60 Glucose 97 mg/dL mg/dL (70-100) Calcium 9.4 mg/dL mg/dL (8.5-10.4) Magnesium 2.3 mg/dL mg/dL (1.6-2.3) Total Bilirubin 2.4 mg/dL H mg/dL (0.1-1.4) Conjugated Bilirubin 0.3 mg/dL mg/dL (0.0-0.5) Unconjugated Bilirubin 2.1 mg/dL H mg/dL (0.0-1.1) AST 30 IU/L IU/L (14-46) ALT 37 IU/L IU/L (9-52) Alkaline Phosphatase 58 IU/L IU/L (38-126) Total Protein 7.3 g/dL g/dL (6.3-8.2) Albumin 4.2 g/dL g/dL (3.5-5.0) Beta HCG, Qual NEGATIVE 08/28/17 09:08 WBC 7.24 10^3/uL 10^3/uL (3.80-9.50) RBC 4.41 10^6/uL 10^6/uL (4.18-5.33) Hgb 13.7 g/dL g/dL (12.6-16.3) Hct 38.3 % % (38.0-47.0) MCV 86.8 fL fL (81.5-99.8) MCH 31.1 pg pg (27.9-34.1) MCHC 35.8 g/dL g/dL (32.4-36.7) RDW 12.8 % % (11.5-15.2) Plt Count 180 10^3/uL 10^3/uL (150-400) MPV 10.4 fL fL (8.7-11.7) Neut % (Auto) 63.5 % % (39.3-74.2) Lymph % (Auto) 26.4 % % (15.0-45.0) [place] % (Auto) 8.1 % % (4.5-13.0) Eos % (Auto) 1.1 % % (0.6-7.6) Baso % (Auto) 0.6 % % (0.3-1.7) Nucleat RBC Rel Count 0.0 % % (0.0-0.2) Absolute Neuts (auto) 4.60 10^3/uL 10^3/uL (1.70-6.50) Absolute Lymphs (auto) 1.91 10^3/uL 10^3/uL (1.00-3.00) Absolute Monos (auto) 0.59 10^3/uL 10^3/uL (0.30-0.80) Absolute Eos (auto) 0.08 10^3/uL 10^3/uL (0.03-0.40) Absolute Basos (auto) 0.04 10^3/uL 10^3/uL (0.02-0.10) Absolute Nucleated RBC 0.00 10^3/uL 10^3/uL (0-0.01) Immature Gran % 0.3 % % (0.0-1.1) Immature Gran # 0.02 10^3/uL 10^3/uL (0.00-0.10) Sodium Potassium Chloride Carbon Dioxide Anion Gap BUN Creatinine Estimated GFR Glucose Calcium Magnesium Total Bilirubin Conjugated Bilirubin Unconjugated Bilirubin AST ALT Alkaline Phosphatase Total Protein Albumin Beta HCG, Qual Medications Given: Discontinued Medications Sodium Chloride (Ns) 1,000 mls @ 0 mls/hr IV EDNOW ONE; Wide Open PRN Reason: Protocol Stop: 08/28/17 08:59 Last Admin: 08/28/17 09:14 Dose: 1,000 mls Sodium Chloride (Ns) 1,000 mls @ 0 mls/hr IV EDNOW ONE; Wide Open PRN Reason: Protocol Stop: 08/28/17 08:59 Last Admin: 08/28/17 09:15 Dose: 1,000 mls Potassium Chloride (Potassium Cl 20 Meq (Premix)) 100 mls @ 50 mls/hr IV EDNOW ONE Stop: 08/28/17 11:37 Last Admin: 08/28/17 11:41 Dose: Not Given Potassium Chloride (Potassium Cl 10 Meq (Premix)) 100 mls @ 100 mls/hr IV EDNOW ONE Stop: 08/28/17 10:43 Last Admin: 08/28/17 11:44 Dose: Not Given Potassium Chloride (Potassium Cl 10 Meq (Premix)) 100 mls @ 100 mls/hr IV Q1H BHARATHI Stop: 08/28/17 11:44 Last Admin: 08/28/17 11:40 Dose: Not Given Departure - Departure Disposition: [facility] Clinical Impression: Inadequate oral intake, Delusional disorder Schizophrenia Qualifiers: 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 [Clinic] - As per Instructions
[2017-08-28] MEDS ORDERED: POTASSIUM Cl (KCl) 100 ML IV ONE ×2 (09:38→09:44)
[2017-08-28] MEDS ORDERED: POTASSIUM Cl (KCl) 10 MEQ in NS 100 ML IV SCH (10:00)
[2017-08-28] MEDS: POTASSIUM Cl (KCl) 100 ML IV SCH ×2 (10:13→11:40)
[2017-08-28 10:36] VITALS: BP 140/68; PULSE 90; RESP 22; TEMP 98.1
== END 2017-08-28 11:44 ==
LOC: EDUNIT#
DX: E86.0 Dehydration (principal); R00.0 Tachycardia, unspecified; F20.2 Catatonic schizophrenia
CPT/HCPCS: J3480